=== PATIENT | female | born 1970 ===

== ENCOUNTER 2019-01-30 07:26 | Emergency (ER) | payer OTHER ==
[2019-01-30] MEDS ORDERED: ASPIRIN 81 MG TABLET, CHEWABLE PO ONE (08:02)
[2019-01-30] MEDS ORDERED: MORPHINE SULFATE 10 MG/ML INJ IV ONE (08:23)
--- NOTE | 2019-01-30 08:28 | ER Document Report ---
ED Cardiac - General Chief Complaint: Chest Pain Stated Complaint: CHEST PAIN Time Seen by Provider: 01/30/19 08:02 Primary Care Provider: SCHUYLER LIRA DO [Primary Care Provider] - Follow up as needed TRAVEL OUTSIDE OF THE [place] IN LAST 30 DAYS: No - HPI Notes: Patient is a 48-year-old female that presents to the emergency department for chief complaint of chest pain. Patient states she has had left-sided chest pain intermittently over the last 3 days. She describes it as a heavy pressure and tightness. It is located substernally and just to the left of her sternum. She denies radiation into her neck and arm. She does report some associated shortness of breath and pain with inspiration. The pain has been constant since around 1 AM today. Patient states she was at [facility] prior to coming to the ER and had blood work and x-ray that was unremarkable. She states when she got home the pain was getting worse which is why she came to [facility] emergency room. She denies having any aspirin in the last 24 hours. She states they did give her Toradol which had given her some relief. She denies any recent surgery, travel, immobilization or exogenous estrogen use. She denies history of cancer, DVT/PE. She has never had a stress test performed in the past. She does believe her father had cardiac disease which began in his 50s. Past Medical History: Ventral hernia, umbilical hernia, GERD Past Surgical History: Cholecystectomy Social History: Denies drugs alcohol and tobacco Family History: Reviewed and noncontributory for presenting illness Allergies: Reviewed, see documented allergy list. REVIEW OF SYSTEMS: CONSTITUTIONAL : No fever No chills No diaphoresis No recent illness EENT: No vision changes No congestion No sore throat CARDIOVASCULAR: chest pain No palpitations RESPIRATORY: No shortness of breath No cough No difficulty breathing GASTROINTESTINAL: No abdominal pain No nausea No vomiting No diarrhea GENITOURINARY: No dysuria No hematuria No difficulty urinating MUSCULOSKELETAL: No back pain No leg pain No arm pain SKIN: No rashes No lesions LYMPHATIC: No swollen, enlarged glands. NEUROLOGICAL: No lightheadedness No headache No weakness No paresthesias PSYCHIATRIC: No anxiety No depression PHYSICAL EXAMINATION: Vital signs reviewed, nursing noted reviewed. GENERAL: Well-appearing, well-nourished and in no acute distress. HEAD: Atraumatic, normocephalic. EYES: Eyes appear normal, extraocular movements intact, sclera anicteric, conjunctiva are normal. ENT: nares patent, oropharynx clear without exudates. Moist mucous membranes. NECK: Normal range of motion, supple without lymphadenopathy LUNGS: Tenderness to palpation of the anterior left chest without flail segment or deformity. Breath sounds clear to auscultation bilaterally and equal. No wheezes rales or rhonchi. HEART: Regular rate and rhythm without murmurs +2/4 bilateral radial and DP pulses ABDOMEN: Soft, nontender, normoactive bowel sounds. No rebound, guarding, or rigidity. No masses appreciated. EXTREMITIES: Nontender, good range of motion, no pitting or edema. Negative Homans sign NEUROLOGICAL: No focal neurological deficits. Moves all extremities spontaneously Motor and sensory grossly intact on exam. PSYCH: Normal mood, normal affect. SKIN: Warm, Dry, normal turgor, no rashes or lesions noted on exposed skin - Related Data Allergies/Adverse Reactions: No Known Allergies Allergy (Verified 01/30/19 07:27) Past Medical History - Social History Smoking Status: Never Smoker Family History: CAD, Other - Father has CAD Physical Exam - Vital signs Vitals: Temp Pulse Resp BP Pulse Ox 98.4 F 69 18 125/75 98 01/30/19 07:36 01/30/19 07:36 01/30/19 07:36 01/30/19 07:36 01/30/19 07:36 Course - Re-evaluation Re-evalutation: 01/30/19 08:28 Vitals reviewed. Nursing notes reviewed. Patient was given aspirin for her complaint of chest pain. She does have focal tenderness to her left anterior chest without history of trauma or any obvious deformity. Patient has received Toradol in the last 4 to 5 hours which has not significantly improved her pain. She will be given morphine for further pain control. 01/30/19 09:43 Patient's work-up from [facility] earlier this morning were obtained. She had a negative CBC, CMP, troponin and chest x-ray. Patient's troponin was drawn around 3 AM. Her troponin here is also negative. Patient CTA shows no acute underlying lung disease, PE or pneumonia. Her pain is reproducible with palpitation. I do not feel she is having acute ACS. Patient has had some symptomatic improvement after morphine. She will be referred to cardiology for follow-up. She will continue taking Tylenol and ibuprofen at home as needed for pain. She was counseled on return precautions and verbalized understanding. Patient is stable for discharge Laboratory 01/30/19 01/30/19 01/30/19 08:20 08:20 08:20 WBC 6.3 RBC 4.18 Hgb 12.3 Hct 36.9 MCV 88 MCH 29.5 MCHC 33.4 RDW 13.6 Plt Count 239 Seg Neutrophils % 64.1 Lymphocytes % 28.8 Monocytes % 6.0 Eosinophils % 0.7 Basophils % 0.4 Absolute Neutrophils 4.1 Absolute Lymphocytes 1.8 Absolute Monocytes 0.4 Absolute Eosinophils 0.0 Absolute Basophils 0.0 Sodium 139.3 Potassium 3.8 Chloride 105 Carbon Dioxide 26 Anion Gap 8 BUN 15 Creatinine 0.55 Est GFR ( Amer) > 60 Est GFR (Non-Af Amer) > 60 Glucose 96 Calcium 9.1 Total Bilirubin 1.1 Direct Bilirubin 0.2 Neonat Total Bilirubin Not Reportable Neonat Direct Bilirubin Not Reportable Neonat Indirect Bili Not Reportable AST 29 ALT 22 Alkaline Phosphatase 74 Troponin I < 0.012 Total Protein 7.1 Albumin 4.1 Chest X-Ray 01/30/19 08:02 IMPRESSION: NO ACUTE RADIOGRAPHIC FINDING IN THE CHEST. Chest/Abdomen CTA 01/30/19 08:23 IMPRESSION: NORMAL CTA OF THE CHEST. NO PULMONARY EMBOLI. - Vital Signs Vital signs: Temp Pulse Resp BP Pulse Ox 98.4 F 69 18 125/75 100 01/30/19 07:36 01/30/19 07:36 01/30/19 07:36 01/30/19 07:36 01/30/19 08:34 - Laboratory Result Diagrams: 01/30/19 08:20 01/30/19 08:20 - EKG Interpretation by Me Additional EKG results interpreted by me: 01/30/19 08:29 Interpreted by myself 0731: Normal sinus rhythm, rate 61, first-degree AV block, normal axis, no ectop y, no STEMI Discharge - Discharge Clinical Impression: Chest pain Qualifiers: Chest pain type: unspecified Qualified Code(s): R07.9 - Chest pain, unspecified Condition: Stable Disposition: HOME, SELF-CARE Instructions: Chest Pain of Unclear Cause ([facility]) Additional Instructions: Please return to the emergency department if you have any worsening, or concern of your symptoms. Please return to the emergency department if you develop chest pain, difficulty breathing, severe abdominal pain, or ongoing vomiting. Please follow-up with your primary care physician in 2-3 days and any other recommended physicians. If prescribed, take all medications as directed. If you have any questions or concerns do not hesitate to return the emergency department for evaluation. [] Referrals: SCHUYLER LIRA DO [Primary Care Provider] - Follow up as needed BURKE PINZON MD [ACTIVE STAFF] - Follow up as needed
[2019-01-30 08:31] LABS: ABSOLUTE LYMPHOCYTES (AUTO) 1.8 10^3/uL (0.5-4.7); ABSOLUTE MONOCYTES (AUTO) 0.4 10^3/uL (0.1-1.4); ABSOLUTE NEUT (AUTO) 4.1 10^3/uL (1.7-8.2); BASOPHILS % (AUTO) 0.4 % (0-2); EOSINOPHILS % (AUTO) 0.7 % (0-6); HEMATOCRIT 36.9 % (36.0-47.0); HEMOGLOBIN 12.3 g/dL (12.0-15.5); LYMPHOCYTES % (AUTO) 28.8 % (13-45); MEAN CORPUSCULAR HEMOGLOBIN 29.5 pg (27.0-33.4); MEAN CORPUSCULAR HGB CONC 33.4 g/dL (32.0-36.0); MEAN CORPUSCULAR VOLUME 88 fl (80-97); PLATELET COUNT 239 10^3/uL (150-450); RED BLOOD COUNT 4.18 10^6/uL (3.72-5.28); RED CELL DISTRIBUTION WIDTH 13.6 % (11.5-14.0); SEGMENTED NEUTROPHILS % (AUTO) 64.1 % (42-78); TOTAL CELLS COUNTED % (AUTO) 100 %; WHITE BLOOD COUNT 6.3 10^3/uL (4.0-10.5)
--- NOTE | 2019-01-30 08:32 | RADIOLOGY REPORT (SQ) ---
EXAM DESCRIPTION: CHEST SINGLE VIEW COMPLETED DATE/TIME: 01/30/2019 8:14 am REASON FOR STUDY: chest pain COMPARISON: None. EXAM PARAMETERS: NUMBER OF VIEWS: One view. TECHNIQUE: Single frontal radiographic view of the chest acquired. RADIATION DOSE: NA LIMITATIONS: None. FINDINGS: LUNGS AND PLEURA: No opacities, masses or pneumothorax. No pleural effusion. MEDIASTINUM AND HILAR STRUCTURES: No masses. Contour normal. HEART AND VASCULAR STRUCTURES: Heart normal in size. Normal vasculature. BONES: No acute findings. HARDWARE: None in the chest. OTHER: No other significant finding. IMPRESSION: NO ACUTE RADIOGRAPHIC FINDING IN THE CHEST. TECHNICAL DOCUMENTATION: JOB ID: [id number] [employer]- All Rights Reserved Reading location - IP/workstation name: [email or web address]
[2019-01-30 09:00] LABS: ALANINE AMINOTRANSFERASE 22 U/L (9-52); ALBUMIN 4.1 g/dL (3.5-5.0); ALKALINE PHOSPHATASE 74 U/L (38-126); ANION GAP 8 (5-19); ASPARTATE AMINO TRANSFERASE 29 U/L (14-36); BILIRUBIN,DIRECT 0.2 mg/dL (0.0-0.4); BILIRUBIN,TOTAL 1.1 mg/dL (0.2-1.3); BLOOD UREA NITROGEN 15 mg/dL (7-20); CALCIUM 9.1 mg/dL (8.4-10.2); CARBON DIOXIDE 26 mmol/L (22-30); CHLORIDE 105 mmol/L (98-107); GLUCOSE 96 mg/dL (75-110); POTASSIUM 3.8 mmol/L (3.6-5.0); SODIUM 139.3 mmol/L (137-145); TOTAL PROTEIN 7.1 g/dL (6.3-8.2)
--- NOTE | 2019-01-30 09:25 | RADIOLOGY REPORT (SQ) ---
EXAM DESCRIPTION: CTA CHEST COMPLETED DATE/TIME: 01/30/2019 9:04 am REASON FOR STUDY: chest pain COMPARISON: Radiographs. TECHNIQUE: CT scan of the chest performed using helical scanning technique with dynamic intravenous contrast injection. Images reviewed with lung, soft tissue and bone windows. Reconstructed coronal and sagittal MPR images reviewed. Additional 3 dimensional post-processing performed to develop Maximal Intensity Projection images (MN P). All images stored on PACS. All CT scanners at this facility use dose modulation, iterative reconstruction, and/or weight based d osing when appropriate to reduce radiation dose to as low as reasonably achievable (ALARA). [facility]: Dose Right [facility]: CareDose [facility]: Dose Right [facility]: Teradose 4D [facility]: MugenUp CONTRAST TYPE AND DOSE: contrast/concentration: Isovue 350.00 mg/ml; Total Contrast Delivered: 73.0 ml; Total Saline Delivered: 90.0 ml Contrast bolus optimized for the pulmonary arteries. Not diagnostic for the aorta. RENAL FUNCTION: None required. The patient is less than 50 years old. RADIATION DOSE: CT Rad equipment meets quality standard of care and radiation dose reduction techniq ues were employed. CTDIvol: 3.3 - 17.9 mGy. DLP: 597 mGy-cm. . LIMITATIONS: None. FINDINGS: LUNGS AND PLEURA: No masses, infiltrates, or pneumothorax. No pleural effusions or pleura l calcifications. AORTA AND GREAT VESSELS: Suboptimal contrast enhancement. No gross aneurysm suggested. HEART: No pericardial effusion. No significant coronary artery calcifications. PULMONARY ARTERIES: No emboli visualized in the main pulmonary arteries or the segmental branches. HILAR AND MEDIASTINAL STRUCTURES: No identified masses or abnormal nodes. HARDWARE: None in the chest. UPPER ABDOMEN: No significant findings. Limited exam. THYROID AND OTHER SOFT TISSUES: Thyroid looks slightly enlarged. No axillary adenopathy or chest wal l mass. BONES: No acute or significant finding. 3D MIPS: Confirm above findings. OTHER: No other significant finding. IMPRESSION: NORMAL CTA OF THE CHEST. NO PULMONARY EMBOLI. COMMENT: Quality ID # [id number]: Final reports with documentation of one or more dose reduction techniques (e.g., Automated exposure control, adjustment of the mA and/or kV according to patient size, use of iterative reconstruction technique) TECHNICAL DOCUMENTATION: JOB ID: [id number] [employer]- All Rights Reserved Reading location - IP/workstation name: [email or web address]
[2019-01-30 10:09] VITALS: BP 145/78
--- NOTE | 2019-01-30 22:23 | EKG REPORT ---
SEVERITY:- ABNORMAL ECG - SINUS RHYTHM FIRST DEGREE AV BLOCK : Confirmed by: aNte Plasencia MD 30-Jan-2019 22:22:49
== END 2019-01-30 10:14 | disposition home or self-care (01) ==
LOC: ER 07:26
DX: R07.9 Chest pain, unspecified (principal); K21.9 Gastro-esophageal reflux disease without esophagitis; Z90.49 Acquired absence of other specified parts of digestive tract
CPT/HCPCS: 93005; 99285; 96374; 36415; 85025; 80053; 84484; 71045; 71275; 93010; J2270